=== PATIENT | female | born 1955 | race Caucasian/White ===

== ENCOUNTER 2016-10-23 20:24 | Inpatient (IN) | payer OTHER ==
[~2016-10-23] VITALS: Ht 172.7 cm; Wt 142.1 kg
[~2016-10-23 20:24] MED LIST: ARIP15TA3 PO; ETOMIDATE 2 MG/ML 10 ML VIAL IV ONE; FLUO20CA30 PO; GABA-531 PO; GLIP5TAB11 PO; HYDR12.530 PO; IBUP-1547 PO; LAMO200T PO; LISI30TA4 PO; METF10002 PO; OMEP20CA10 PO; PIOG30TA2 PO; SIMV-260 PO; TAMS0.4C32 PO; TRAZ-147 PO
[2016-10-23] MEDS ORDERED: GABA-531 PO (20:41)
[2016-10-23] MEDS ORDERED: FURO40 PO (20:41)
[2016-10-23] MEDS ORDERED: AMIO200T44 PO (20:41)
[2016-10-23] MEDS ORDERED: ATOR40TA28 PO (20:41)
[2016-10-23] MEDS ORDERED: INSLAN SQ (20:41)
[2016-10-23] MEDS ORDERED: APIX5TAB PO (20:41)
[2016-10-23] MEDS ORDERED: GLIP5 PO (20:41)
[2016-10-23] MEDS ORDERED: ARIP15TA3 PO (20:41)
[2016-10-23] MEDS ORDERED: METF500T4 PO (20:41)
[2016-10-23] MEDS ORDERED: LAMO100 PO (20:41)
[2016-10-23] MEDS ORDERED: OMEG300C3 PO (20:41)
[2016-10-23] MEDS ORDERED: SODIUM CHLORIDE 0.9% 1,000 ML IV ONE (21:00)
[2016-10-23 21:30] LABS: ABG A-A DIFF O2 399.9 mmHg (10-20.0); ABG BASE EXCESS 7.3 mmol/L (-2.0-3.0); ABG HCO3 28.9 mmol/L (22.0-26.0); ABG OXYHEMOGLOBIN 86.5 % (94.0-100.0); ABG PH 7.217 (7.35-7.450); TEMPERATURE, FAHRENHEIT, BG 98.3 FAHREN (96.0-98.6)
[2016-10-23 21:31] LABS: ABG PCO2 88 mmHg (35-45)
[2016-10-23 21:32] LABS: ALLEN TEST, BLOOD GAS Positive
[2016-10-23] MEDS ORDERED: RAPID SEQUENCE KIT [RSI] 1 EACH KIT ONE ×2 (21:37)
[2016-10-23] MEDS ORDERED: SUCCINYLCHOLINE CHLORIDE 20 MG/ML 10 ML VIAL ONE (21:38)
[2016-10-23 21:40] LABS: BASOPHILS # (AUTO) 0.06 K/uL (0.00-0.20); EOSINOPHILS # (AUTO) 0.07 K/uL (0.00-0.70); EOSINOPHILS % (AUTO) 1.06 % (1.0-6.0); HEMATOCRIT 33.6 % (41-53); HEMOGLOBIN 10.4 g/dL (13.5-17.5); LYMPHOCYTES # (AUTO) 1.2 K/uL (1.0-4.8); LYMPHOCYTES % (AUTO) 18.3 % (22.0-44.0); MEAN CORPUSCULAR HEMOGLOBIN 27.5 pg (26.0-34.0); MEAN CORPUSCULAR HGB CONC 31.1 G/dL (31.0-37.0); MEAN CORPUSCULAR VOLUME 88 fL (80-100); MONOCYTES # (AUTO) 0.3 K/uL (0.1-1.0); MONOCYTES % (AUTO) 5.1 % (2.0-9.0); NEUTROPHILS # (AUTO) 4.7 K/uL (1.8-7.7); NEUTROPHILS % (AUTO) 74.6 % (40.0-70.0); PLATELET COUNT (AUTO) 143 K/uL (150-450); RED CELL DISTRIBUTION WIDTH 18.5 % (11.5-14.5); WHITE BLOOD COUNT (AUTO) 6.3 K/uL (4.5-11.0)
[2016-10-23 21:49] LABS: ANION GAP 7 mmol/L (8-16); CALCIUM, TOTAL 8.3 mg/dL (8.8-10.5); CARBON DIOXIDE 33 mmol/L (22-29); CHLORIDE 104 mmol/L (98-107); CREATININE 4.61 mg/dL (0.60-1.30); GLOMERULAR FILTR. RATE CALC 13 mL/min (>60); POTASSIUM 4.5 mmol/L (3.5-5.1); SODIUM SERUM 144 mmol/L (136-145); UREA NITROGEN, BLOOD 33 mg/dL (7-18)
[2016-10-23] MEDS ORDERED: LORazepam 2 MG/ML VIAL IVP ONE (22:00)
[2016-10-23] MEDS ORDERED: SUCCINYLCHOLINE CHLORIDE 20 MG/ML 10 ML VIAL IVP ONE (22:00)
[2016-10-23] MEDS ORDERED: ROCURONIUM BROMIDE 10 MG/ML 5 ML VIAL IVP ONE (22:00)
[2016-10-23] MEDS ORDERED: ETOMIDATE 2 MG/ML 10 ML VIAL IVP ONE (22:00)
[2016-10-23 22:01] LABS: ALANINE AMINOTRANSFERASE 14 U/L (12-78); ASPARTATE AMINOTRANSFERASE 13 U/L (15-37); BILIRUBIN,TOTAL 0.4 mg/dL (0.1-1.0); CREATINE KINASE MB 1.7 ng/mL (0-5); CREATINE KINASE, TOTAL 102 U/L (39-308); TOTAL PROTEIN, SERUM 6.5 g/dL (6.4-8.2)
[2016-10-23 22:06] LABS: B-TYPE NATRIURETIC PEPTIDE 204 pg/mL (0-100)
[2016-10-23 22:09] LABS: APPEARANCE,URINE CLOUDY (CLEAR); GLUCOSE, URINE (UA) NEGATIVE (NEGATIVE); KETONES,URINE TRACE mg/dL (NEGATIVE); LEUKOCYTE ESTERASE ,URINE SMALL (NEGATIVE); OCCULT BLOOD,URINE NEGATIVE (NEGATIVE); PROTEIN,URINE POS 1+ (NEGATIVE)
[2016-10-23 22:12] LABS: ADD UA MICROSCOPIC YES
[2016-10-23 22:13] LABS: AMORPHOUS SEDIMENT,UR Few /LPF (None Seen); RBC,URINE 0-2 /HPF (0-2); SQUAMOUS EPITHELIAL CELL,UR Moderate /LPF (None Seen)
[2016-10-23] MEDS ORDERED: FUROSEMIDE 40 MG/4 ML VIAL IVP ONE (22:15)
[2016-10-23 22:19] LABS: INR 0.9 (0.9-1.1); PROTHROMBIN TIME 9.8 SEC (9.4-11.6)
[2016-10-23] MEDS ORDERED: CefTRIAXone 1 GM/DEXTROSE 50 ML IV ONE (22:30)
[2016-10-23 23:20] LABS: REFLEX LACTIC ACID? YES YES
[2016-10-23 23:31] LABS: ABG A-A DIFF O2 423.9 mmHg (10-20.0); ABG BASE EXCESS 5.1 mmol/L (-2.0-3.0); ABG HCO3 28.6 mmol/L (22.0-26.0); ABG OXYHEMOGLOBIN 94.5 % (94.0-100.0); ABG PCO2 44 mmHg (35-45); ABG PH 7.444 (7.35-7.450); TEMPERATURE, FAHRENHEIT, BG 97.7 FAHREN (96.0-98.6)
[2016-10-23 23:32] LABS: ALLEN TEST, BLOOD GAS Positive
[2016-10-24] VITALS (8 sets, daily range): BP systolic 89–128; BP diastolic 47–86
[2016-10-24] MEDS: PROPOFOL 1000 MG/ISO-OSM 100 ML IV PRN ×5 (05:11→23:05)
[2016-10-24] MEDS ORDERED: DEXTROSE 50%-WATER 25 GM/50 ML SYRINGE IVP ONE ×3 (05:30→17:15)
[2016-10-24 05:50] LABS: CALCIUM, TOTAL 8.6 mg/dL (8.8-10.5); CREATININE 4.33 mg/dL (0.60-1.30); MAGNESIUM 1.8 mg/dL (1.80-2.40); PHOSPHORUS 3.1 mg/dL (2.5-4.9); POTASSIUM 4.1 mmol/L (3.5-5.1)
[2016-10-24 05:54] LABS: BASOPHILS # (AUTO) 0.03 K/uL (0.00-0.20); BASOPHILS % (AUTO) 0.6 % (0.0-2.0); EOSINOPHILS # (AUTO) 0.06 K/uL (0.00-0.70); EOSINOPHILS % (AUTO) 1.18 % (1.0-6.0); HEMATOCRIT 34.8 % (41-53); HEMOGLOBIN 11.1 g/dL (13.5-17.5); LYMPHOCYTES # (AUTO) 1.6 K/uL (1.0-4.8); LYMPHOCYTES % (AUTO) 28.6 % (22.0-44.0); MEAN CORPUSCULAR HEMOGLOBIN 27.7 pg (26.0-34.0); MEAN CORPUSCULAR HGB CONC 31.9 G/dL (31.0-37.0); MEAN CORPUSCULAR VOLUME 87 fL (80-100); MONOCYTES # (AUTO) 0.3 K/uL (0.1-1.0); MONOCYTES % (AUTO) 4.9 % (2.0-9.0); NEUTROPHILS # (AUTO) 3.5 K/uL (1.8-7.7); NEUTROPHILS % (AUTO) 64.8 % (40.0-70.0); RED BLOOD CELL COUNT(AUTO) 4.01 MIL/uL (4.50-5.90); RED CELL DISTRIBUTION WIDTH 18.7 % (11.5-14.5); WHITE BLOOD COUNT (AUTO) 5.5 K/uL (4.5-11.0)
[2016-10-24 07:58] LABS: PLATELET COUNT (AUTO) 134 K/uL (150-450); RBC MORPHOLOGY COMMENT ABNORMAL RBC MORPH
[2016-10-24] MEDS ORDERED: BISACODYL 10 MG RECTAL RECTAL SUPPOSITORY PR PRN (08:00)
[2016-10-24] MEDS: DEXTROSE 5%-0.45% SODIUM CHL 1,000 ML IV SCH ×2 (08:00→20:01)
[2016-10-24 08:22] LABS: GLUCOSE,POINT OF CARE 151 MG/DL (70-110)
[2016-10-24 08:22] LABS: GLUCOSE COMMENT 1 Received Meds; GLUCOSE,POINT OF CARE 62 MG/DL (70-110)
[2016-10-24] MEDS ORDERED: APIXABAN 2.5 MG TABLET PO SCH (09:00)
[2016-10-24] MEDS: DOCUSATE SODIUM 100 MG CAPSULE PO SCH ×2 (09:00→20:18)
[2016-10-24] MEDS ORDERED: PANTOPRAZOLE SODIUM 40 MG/VIAL IVP SCH (09:00)
[2016-10-24] MEDS ORDERED: HEPARIN SODIUM 25000 UNITS/D5W 250 ML IV PRN (09:31)
[2016-10-24] MEDS ORDERED: HEPARIN SODIUM,PORCINE 5,000 UNITS/ML VIAL IVP PRN ×3 (09:45)
[2016-10-24 10:02] LABS: PROTHROMBIN TIME 10.6 SEC (9.4-11.6)
[2016-10-24] MEDS: HEPARIN SODIUM 25000 UNITS/D5W 250 ML IV PRN ×2 (11:04→17:51)
[2016-10-24] MEDS ORDERED: DEXTROSE 50%-WATER 25 GM/50 ML SYRINGE IVP PRN ×2 (18:45→22:00)
[2016-10-24 20:57] LABS: GLUCOSE,POINT OF CARE 62 MG/DL (70-110)
[2016-10-24 20:57] LABS: GLUCOSE,POINT OF CARE 114 MG/DL (70-110)
[2016-10-24 20:57] LABS: GLUCOSE,POINT OF CARE 111 MG/DL (70-110)
[2016-10-24] MEDS: INSULIN REGULAR, HUMAN 100 UNITS/ML SQ PRN (23:22)
[2016-10-25] VITALS (8 sets, daily range): BP systolic 91–140; BP diastolic 65–77
[2016-10-25] MEDS: PROPOFOL 1000 MG/ISO-OSM 100 ML IV PRN ×6 (01:57→23:07)
[2016-10-25] MEDS: INSULIN REGULAR, HUMAN 100 UNITS/ML SQ PRN ×2 (04:37→12:34)
[2016-10-25 04:38] LABS: GLUCOSE,POINT OF CARE 72 MG/DL (70-110)
[2016-10-25 04:42] LABS: GLUCOSE,POINT OF CARE 125 MG/DL (70-110)
[2016-10-25 04:42] LABS: GLUCOSE,POINT OF CARE 105 MG/DL (70-110)
[2016-10-25] MEDS: HEPARIN SODIUM 25000 UNITS/D5W 250 ML IV PRN ×2 (05:52→23:57)
[2016-10-25 05:57] LABS: BASOPHILS % (AUTO) 0.4 % (0.0-2.0); EOSINOPHILS % (AUTO) 2.1 % (1.0-6.0); HEMATOCRIT 34.1 % (41-53); HEMOGLOBIN 10.8 g/dL (13.5-17.5); LYMPHOCYTES # (AUTO) 1.6 K/uL (1.0-4.8); MEAN CORPUSCULAR HEMOGLOBIN 27.3 pg (26.0-34.0); MEAN CORPUSCULAR HGB CONC 31.8 G/dL (31.0-37.0); MEAN CORPUSCULAR VOLUME 86 fL (80-100); MONOCYTES # (AUTO) 0.3 K/uL (0.1-1.0); MONOCYTES % (AUTO) 5.3 % (2.0-9.0); NEUTROPHILS % (AUTO) 60.2 % (40.0-70.0); PLATELET COUNT (AUTO) 136 K/uL (150-450); RED BLOOD CELL COUNT(AUTO) 3.97 MIL/uL (4.50-5.90); RED CELL DISTRIBUTION WIDTH 18.8 % (11.5-14.5)
[2016-10-25 06:16] LABS: ALBUMIN 2.6 g/dL (3.4-5.0); BILIRUBIN,TOTAL 0.4 mg/dL (0.1-1.0); CALCIUM, TOTAL 8.5 mg/dL (8.8-10.5); CREATININE 2.93 mg/dL (0.60-1.30); MAGNESIUM 1.7 mg/dL (1.80-2.40); PHOSPHORUS 2.1 mg/dL (2.5-4.9); THYROID STIMULATING HORMONE 7.68 uIU/mL (0.36-3.74)
[2016-10-25] MEDS: HEPARIN SODIUM,PORCINE 5,000 UNITS/ML VIAL IVP PRN (07:10)
[2016-10-25 07:14] LABS: POTASSIUM 2.7 mmol/L (3.5-5.1)
[2016-10-25] MEDS ORDERED: POTASSIUM CHLORIDE 10% 40 MEQ/30 ML LIQUID UDCUP NG ONE (07:45)
[2016-10-25] MEDS ORDERED: SODIUM PHOS,M-BASIC-D-BASIC 20 MMOL in DEXTROSE 5%-WATER 150 ML IV ONE (08:00)
[2016-10-25] MEDS ORDERED: MAGNESIUM SULFATE 3 GM in DEXTROSE 5%-WATER 100 ML IV ONE (08:00)
[2016-10-25] MEDS: PANTOPRAZOLE SODIUM 40 MG DR TABLET PO SCH ×2 (08:57→09:01)
[2016-10-25] MEDS: DOCUSATE SODIUM 100 MG CAPSULE PO SCH ×2 (08:59→19:50)
[2016-10-25] MEDS: MORPHINE SULFATE 2 MG/ML SYRINGE IVP PRN (09:00)
[2016-10-25 09:44] LABS: RBC MORPHOLOGY COMMENT ABNORMAL RBC MORPH
[2016-10-25 09:57] LABS: ABG A-A DIFF O2 248.1 mmHg (10-20.0); ABG BASE EXCESS 3.3 mmol/L (-2.0-3.0); ABG HCO3 27.4 mmol/L (22.0-26.0); ABG OXYHEMOGLOBIN 93.5 % (94.0-100.0); ABG PCO2 35 mmHg (35-45); ABG PH 7.495 (7.35-7.450); TEMPERATURE, FAHRENHEIT, BG 97.8 FAHREN (96.0-98.6)
[2016-10-25 09:58] LABS: ALLEN TEST, BLOOD GAS Positive
[2016-10-25 12:23] LABS: GLUCOSE COMMENT 1 Received Meds; GLUCOSE,POINT OF CARE 141 MG/DL (70-110)
[2016-10-25] MEDS: MetroNIDAZOLE 500 MG TABLET PO SCH ×2 (15:46→23:57)
[2016-10-25 22:57] LABS: GLUCOSE,POINT OF CARE 105 MG/DL (70-110)
[2016-10-25] MEDS: DEXTROSE 5%-0.45% SODIUM CHL 1,000 ML IV SCH (23:21)
[2016-10-26] VITALS: BP 103/63
[2016-10-26] MEDS: PROPOFOL 1000 MG/ISO-OSM 100 ML IV PRN ×7 (02:18→23:50)
[2016-10-26 05:00] LABS: BASOPHILS # (AUTO) 0.03 K/uL (0.00-0.20); BASOPHILS % (AUTO) 0.7 % (0.0-2.0); EOSINOPHILS # (AUTO) 0.16 K/uL (0.00-0.70); EOSINOPHILS % (AUTO) 3.83 % (1.0-6.0); HEMATOCRIT 34.5 % (41-53); HEMOGLOBIN 11.3 g/dL (13.5-17.5); LYMPHOCYTES # (AUTO) 1.2 K/uL (1.0-4.8); LYMPHOCYTES % (AUTO) 28.3 % (22.0-44.0); MEAN CORPUSCULAR HEMOGLOBIN 27.9 pg (26.0-34.0); MEAN CORPUSCULAR HGB CONC 32.7 G/dL (31.0-37.0); MEAN CORPUSCULAR VOLUME 85 fL (80-100); MONOCYTES # (AUTO) 0.3 K/uL (0.1-1.0); MONOCYTES % (AUTO) 7.2 % (2.0-9.0); NEUTROPHILS # (AUTO) 2.4 K/uL (1.8-7.7); PLATELET COUNT (AUTO) 136 K/uL (150-450); RED BLOOD CELL COUNT(AUTO) 4.05 MIL/uL (4.50-5.90); RED CELL DISTRIBUTION WIDTH 19.5 % (11.5-14.5); WHITE BLOOD COUNT (AUTO) 4.1 K/uL (4.5-11.0)
[2016-10-26 05:20] LABS: ALBUMIN 2.7 g/dL (3.4-5.0); BILIRUBIN,TOTAL 0.3 mg/dL (0.1-1.0); CALCIUM, TOTAL 8.5 mg/dL (8.8-10.5); CREATININE 1.84 mg/dL (0.60-1.30); MAGNESIUM 2.5 mg/dL (1.80-2.40); POTASSIUM 3.2 mmol/L (3.5-5.1); TOTAL PROTEIN, SERUM 6.4 g/dL (6.4-8.2)
[2016-10-26] MEDS: INSULIN REGULAR, HUMAN 100 UNITS/ML SQ PRN (06:06)
[2016-10-26] MEDS: HEPARIN SODIUM,PORCINE 5,000 UNITS/ML VIAL IVP PRN (06:56)
[2016-10-26 08:00] VITALS: BP 126/86
[2016-10-26] MEDS: DOCUSATE SODIUM 100 MG CAPSULE PO SCH ×2 (08:27→21:00)
[2016-10-26 08:33] LABS: GLUCOSE,POINT OF CARE 127 MG/DL (70-110)
[2016-10-26 08:36] LABS: GLUCOSE,POINT OF CARE 146 MG/DL (70-110)
[2016-10-26] MEDS: APIXABAN 5 MG TABLET PO SCH ×2 (08:36→21:15)
[2016-10-26] MEDS: MetroNIDAZOLE 500 MG TABLET PO SCH ×3 (08:36→23:49)
[2016-10-26 09:39] LABS: ABG A-A DIFF O2 165.2 mmHg (10-20.0); ABG BASE EXCESS 6.6 mmol/L (-2.0-3.0); ABG HCO3 29.6 mmol/L (22.0-26.0); ABG OXYHEMOGLOBIN 92.2 % (94.0-100.0); ABG PCO2 45 mmHg (35-45); ABG PH 7.448 (7.35-7.450); TEMPERATURE, FAHRENHEIT, BG 98.6 FAHREN (96.0-98.6)
[2016-10-26 09:40] LABS: ALLEN TEST, BLOOD GAS Positive
[2016-10-26] MEDS ORDERED: LORazepam 2 MG/ML VIAL IVP ONE (10:15)
[2016-10-26] MEDS ORDERED: VANCOMYCIN HCL 1 GM/D5% WATER 200 ML IV ONE (11:00)
[2016-10-26] MEDS ORDERED: POTASSIUM CHLORIDE 10% 40 MEQ/30 ML LIQUID UDCUP PO ONE (11:30)
[2016-10-26] MEDS: PANTOPRAZOLE SODIUM 40 MG/VIAL IVP SCH (11:45)
[2016-10-26 12:00] VITALS: BP 116/75
[2016-10-26 16:00] VITALS: BP 122/68
[2016-10-26 16:07] LABS: GLUCOSE,POINT OF CARE 125 MG/DL (70-110)
[2016-10-26] MEDS: DEXTROSE 5%-0.45% SODIUM CHL 1,000 ML IV SCH (19:53)
[2016-10-26 20:00] VITALS: BP 124/79
[2016-10-26 22:00] VITALS: BP 105/67
[2016-10-27] VITALS (7 sets, daily range): BP systolic 94–126; BP diastolic 56–78
[2016-10-27] MEDS: PROPOFOL 1000 MG/ISO-OSM 100 ML IV PRN ×7 (02:48→21:55)
[2016-10-27 05:43] LABS: BASOPHILS # (AUTO) 0.02 K/uL (0.00-0.20); BASOPHILS % (AUTO) 0.6 % (0.0-2.0); EOSINOPHILS # (AUTO) 0.13 K/uL (0.00-0.70); EOSINOPHILS % (AUTO) 3.15 % (1.0-6.0); HEMATOCRIT 34.5 % (41-53); LYMPHOCYTES # (AUTO) 1.1 K/uL (1.0-4.8); LYMPHOCYTES % (AUTO) 24.9 % (22.0-44.0); MEAN CORPUSCULAR HEMOGLOBIN 27.4 pg (26.0-34.0); MEAN CORPUSCULAR VOLUME 86 fL (80-100); MONOCYTES # (AUTO) 0.3 K/uL (0.1-1.0); MONOCYTES % (AUTO) 7.8 % (2.0-9.0); NEUTROPHILS # (AUTO) 2.7 K/uL (1.8-7.7); NEUTROPHILS % (AUTO) 63.6 % (40.0-70.0); PLATELET COUNT (AUTO) 139 K/uL (150-450); RED BLOOD CELL COUNT(AUTO) 4.02 MIL/uL (4.50-5.90); RED CELL DISTRIBUTION WIDTH 19.9 % (11.5-14.5); WHITE BLOOD COUNT (AUTO) 4.3 K/uL (4.5-11.0)
[2016-10-27 05:57] LABS: CALCIUM, TOTAL 8.6 mg/dL (8.8-10.5); CREATININE 1.35 mg/dL (0.60-1.30); MAGNESIUM 2.1 mg/dL (1.80-2.40); PHOSPHORUS 3.5 mg/dL (2.5-4.9); POTASSIUM 3.7 mmol/L (3.5-5.1)
[2016-10-27] MEDS ORDERED: SODIUM CHLORIDE 0.9% 250 ML IV ONE (07:58)
[2016-10-27] MEDS: APIXABAN 5 MG TABLET PO SCH ×2 (08:08→20:47)
[2016-10-27] MEDS: PANTOPRAZOLE SODIUM 40 MG/VIAL IVP SCH (08:08)
[2016-10-27] MEDS: MetroNIDAZOLE 500 MG TABLET PO SCH ×3 (08:08→23:39)
[2016-10-27] MEDS: DOCUSATE SODIUM 100 MG CAPSULE PO SCH ×2 (08:09→20:43)
[2016-10-27] MEDS: DEXTROSE 5%-0.45% SODIUM CHL 1,000 ML IV SCH (08:09)
[2016-10-27 09:02] LABS: GLUCOSE,POINT OF CARE 114 MG/DL (70-110)
[2016-10-27 09:02] LABS: GLUCOSE,POINT OF CARE 110 MG/DL (70-110)
[2016-10-27 09:02] LABS: GLUCOSE,POINT OF CARE 140 MG/DL (70-110)
[2016-10-27] MEDS ORDERED: VANCOMYCIN HCL 1.5 GM in DEXTROSE 5%-WATER 250 ML IV ONE (10:00)
[2016-10-27 10:54] LABS: RBC MORPHOLOGY COMMENT ABNORMAL RBC MORPH
[2016-10-27] MEDS: INSULIN REGULAR, HUMAN 100 UNITS/ML SQ PRN ×2 (18:11→23:39)
[2016-10-27] MEDS: VANCOMYCIN HCL 1.5 GM in DEXTROSE 5%-WATER 250 ML IV SCH (20:47)
[2016-10-27 23:46] LABS: GLUCOSE,POINT OF CARE 120 MG/DL (70-110)
[2016-10-28] VITALS (10 sets, daily range): BP systolic 102–130; BP diastolic 65–89
[2016-10-28] MEDS: PROPOFOL 1000 MG/ISO-OSM 100 ML IV PRN ×6 (00:23→23:51)
[2016-10-28] MEDS: DEXTROSE 5%-0.45% SODIUM CHL 1,000 ML IV SCH (01:50)
[2016-10-28] MEDS: INSULIN REGULAR, HUMAN 100 UNITS/ML SQ PRN ×2 (05:55→12:28)
[2016-10-28 06:04] LABS: BASOPHILS # (AUTO) 0.02 K/uL (0.00-0.20); BASOPHILS % (AUTO) 0.5 % (0.0-2.0); EOSINOPHILS # (AUTO) 0.17 K/uL (0.00-0.70); EOSINOPHILS % (AUTO) 3.39 % (1.0-6.0); HEMATOCRIT 33.6 % (36-46); HEMOGLOBIN 10.7 g/dL (12.0-16.0); LYMPHOCYTES # (AUTO) 1.2 K/uL (1.0-4.8); LYMPHOCYTES % (AUTO) 24.1 % (22.0-44.0); MEAN CORPUSCULAR HEMOGLOBIN 27.8 pg (26.0-34.0); MEAN CORPUSCULAR HGB CONC 31.9 G/dL (31.0-37.0); MEAN CORPUSCULAR VOLUME 87 fL (80-100); MONOCYTES # (AUTO) 0.4 K/uL (0.1-1.0); MONOCYTES % (AUTO) 7.9 % (2.0-9.0); NEUTROPHILS # (AUTO) 3.3 K/uL (1.8-7.7); NEUTROPHILS % (AUTO) 64.1 % (40.0-70.0); PLATELET COUNT (AUTO) 138 K/uL (150-450); RED BLOOD CELL COUNT(AUTO) 3.85 MIL/uL (4.00-5.20); WHITE BLOOD COUNT (AUTO) 5.1 K/uL (4.5-11.0)
[2016-10-28 06:16] LABS: ALBUMIN 2.5 g/dL (3.4-5.0); BILIRUBIN,TOTAL 0.3 mg/dL (0.1-1.0); CALCIUM, TOTAL 8.6 mg/dL (8.8-10.5); CREATININE 1.17 mg/dL (0.60-1.30); MAGNESIUM 1.7 mg/dL (1.80-2.40); POTASSIUM 3.6 mmol/L (3.5-5.1); TOTAL PROTEIN, SERUM 6.1 g/dL (6.4-8.2)
[2016-10-28 07:02] LABS: RBC MORPHOLOGY COMMENT ABNORMAL RBC MORPH
[2016-10-28] MEDS: MORPHINE SULFATE 2 MG/ML SYRINGE IVP PRN ×2 (08:35→11:35)
[2016-10-28] MEDS: VANCOMYCIN HCL 1.5 GM in DEXTROSE 5%-WATER 250 ML IV SCH ×2 (08:41→20:59)
[2016-10-28] MEDS: MetroNIDAZOLE 500 MG TABLET PO SCH ×3 (08:42→23:57)
[2016-10-28] MEDS: PANTOPRAZOLE SODIUM 40 MG/VIAL IVP SCH (08:45)
[2016-10-28] MEDS: APIXABAN 5 MG TABLET PO SCH ×2 (08:45→20:59)
[2016-10-28] MEDS: DOCUSATE SODIUM 100 MG CAPSULE PO SCH ×2 (08:45→21:00)
[2016-10-28 11:52] LABS: GLUCOSE,POINT OF CARE 125 MG/DL (70-110)
[2016-10-28] MEDS ORDERED: MAGNESIUM SULFATE 2 GM in DEXTROSE 5%-WATER 50 ML IV ONE (12:00)
[2016-10-28 12:07] LABS: GLUCOSE COMMENT 1 Received Meds; GLUCOSE,POINT OF CARE 142 MG/DL (70-110)
[2016-10-28 12:07] LABS: GLUCOSE,POINT OF CARE 109 MG/DL (70-110)
[2016-10-28 12:07] LABS: GLUCOSE COMMENT 1 Received Meds; GLUCOSE,POINT OF CARE 157 MG/DL (70-110)
[2016-10-28] MEDS ORDERED: SODIUM CHLORIDE 0.9% 250 ML IV ONE (21:35)
[2016-10-29] VITALS (10 sets, daily range): BP systolic 91–120; BP diastolic 47–80
[2016-10-29] MEDS: PROPOFOL 1000 MG/ISO-OSM 100 ML IV PRN ×5 (03:30→22:07)
[2016-10-29 06:14] LABS: BASOPHILS % (AUTO) 0.4 % (0.0-2.0); EOSINOPHILS % (AUTO) 3.5 % (1.0-6.0); HEMATOCRIT 33.7 % (36-46); HEMOGLOBIN 10.4 g/dL (12.0-16.0); LYMPHOCYTES # (AUTO) 1.2 K/uL (1.0-4.8); MEAN CORPUSCULAR HEMOGLOBIN 26.7 pg (26.0-34.0); MEAN CORPUSCULAR VOLUME 86 fL (80-100); MONOCYTES # (AUTO) 0.5 K/uL (0.1-1.0); MONOCYTES % (AUTO) 8.3 % (2.0-9.0); NEUTROPHILS # (AUTO) 3.7 K/uL (1.8-7.7); NEUTROPHILS % (AUTO) 65.8 % (40.0-70.0); PLATELET COUNT (AUTO) 150 K/uL (150-450); RED BLOOD CELL COUNT(AUTO) 3.91 MIL/uL (4.00-5.20); RED CELL DISTRIBUTION WIDTH 18.9 % (11.5-14.5); WHITE BLOOD COUNT (AUTO) 5.6 K/uL (4.5-11.0)
[2016-10-29 06:38] LABS: ALBUMIN 2.5 g/dL (3.4-5.0); BILIRUBIN,TOTAL 0.3 mg/dL (0.1-1.0); CALCIUM, TOTAL 8.7 mg/dL (8.8-10.5); CREATININE 1.14 mg/dL (0.60-1.30); MAGNESIUM 2.2 mg/dL (1.80-2.40); TOTAL PROTEIN, SERUM 6.1 g/dL (6.4-8.2)
[2016-10-29] MEDS: MetroNIDAZOLE 500 MG TABLET PO SCH ×3 (08:34→16:38)
[2016-10-29] MEDS: DOCUSATE SODIUM 100 MG CAPSULE PO SCH ×2 (08:35→21:00)
[2016-10-29] MEDS: PANTOPRAZOLE SODIUM 40 MG/VIAL IVP SCH (08:35)
[2016-10-29] MEDS: APIXABAN 5 MG TABLET PO SCH ×2 (08:35→21:27)
[2016-10-29 09:04] LABS: RBC MORPHOLOGY COMMENT ABNORMAL RBC MORPH
[2016-10-29 09:06] LABS: GLUCOSE,POINT OF CARE 102 MG/DL (70-110)
[2016-10-29 09:06] LABS: GLUCOSE,POINT OF CARE 121 MG/DL (70-110)
[2016-10-29 09:06] LABS: GLUCOSE,POINT OF CARE 121 MG/DL (70-110)
[2016-10-29 11:57] LABS: GLUCOSE,POINT OF CARE 119 MG/DL (70-110)
[2016-10-29 17:42] LABS: ABG A-A DIFF O2 152.6 mmHg (10-20.0); ABG BASE EXCESS 1.4 mmol/L (-2.0-3.0); ABG HCO3 25.7 mmol/L (22.0-26.0); ABG OXYHEMOGLOBIN 95.8 % (94.0-100.0); ABG PCO2 41 mmHg (35-45); ABG PH 7.423 (7.35-7.450); ALLEN TEST, BLOOD GAS POS; TEMPERATURE, FAHRENHEIT, BG 99.5 FAHREN (96.0-98.6)
[2016-10-29 18:02] LABS: GLUCOSE,POINT OF CARE 110 MG/DL (70-110)
[2016-10-29] MEDS: VANCOMYCIN HCL 1 GM/D5% WATER 200 ML IV SCH (21:27)
[2016-10-30] VITALS (10 sets, daily range): BP systolic 101–119; BP diastolic 58–81
[2016-10-30] MEDS: PROPOFOL 1000 MG/ISO-OSM 100 ML IV PRN ×8 (00:52→23:22)
[2016-10-30] MEDS: MetroNIDAZOLE 500 MG TABLET PO SCH ×4 (00:53→23:22)
[2016-10-30 05:28] LABS: CREATININE 1.19 mg/dL (0.60-1.30); POTASSIUM 4.1 mmol/L (3.5-5.1)
[2016-10-30 05:29] LABS: CALCIUM, TOTAL 8.6 mg/dL (8.8-10.5); MAGNESIUM 1.9 mg/dL (1.80-2.40); PHOSPHORUS 3.7 mg/dL (2.5-4.9)
[2016-10-30 05:50] LABS: BASOPHILS % (AUTO) 0.5 % (0.0-2.0); EOSINOPHILS % (AUTO) 3.3 % (1.0-6.0); HEMATOCRIT 33.1 % (36-46); HEMOGLOBIN 10.4 g/dL (12.0-16.0); LYMPHOCYTES # (AUTO) 1.5 K/uL (1.0-4.8); LYMPHOCYTES % (AUTO) 24.9 % (22.0-44.0); MEAN CORPUSCULAR HEMOGLOBIN 26.7 pg (26.0-34.0); MEAN CORPUSCULAR HGB CONC 31.3 G/dL (31.0-37.0); MEAN CORPUSCULAR VOLUME 85 fL (80-100); MONOCYTES # (AUTO) 0.7 K/uL (0.1-1.0); MONOCYTES % (AUTO) 11.1 % (2.0-9.0); NEUTROPHILS # (AUTO) 3.6 K/uL (1.8-7.7); NEUTROPHILS % (AUTO) 60.2 % (40.0-70.0); PLATELET COUNT (AUTO) 153 K/uL (150-450); RED BLOOD CELL COUNT(AUTO) 3.87 MIL/uL (4.00-5.20); RED CELL DISTRIBUTION WIDTH 18.6 % (11.5-14.5)
[2016-10-30] MEDS: VANCOMYCIN HCL 1 GM/D5% WATER 200 ML IV SCH (08:02)
[2016-10-30] MEDS: APIXABAN 5 MG TABLET PO SCH ×2 (08:03→20:17)
[2016-10-30] MEDS: PANTOPRAZOLE SODIUM 40 MG/VIAL IVP SCH (08:04)
[2016-10-30] MEDS: DOCUSATE SODIUM 100 MG CAPSULE PO SCH ×2 (08:04→20:21)
[2016-10-30 10:05] LABS: RBC MORPHOLOGY COMMENT ABNORMAL RBC MORPH
[2016-10-30 11:22] LABS: GLUCOSE,POINT OF CARE 103 MG/DL (70-110)
[2016-10-30 11:22] LABS: GLUCOSE,POINT OF CARE 120 MG/DL (70-110)
[2016-10-30] MEDS: HALOPERIDOL LACTATE 5 MG/ML VIAL IVP PRN ×2 (11:26→20:20)
[2016-10-30] MEDS: LACTOBACILLUS ACIDOPHILUS/BULGARICUS GRANULES PACKET NG SCH ×2 (15:44→20:17)
[2016-10-30] MEDS ORDERED: SODIUM CHLORIDE 0.9% 250 ML IV ONE (15:59)
[2016-10-31] VITALS (7 sets, daily range): BP systolic 97–130; BP diastolic 60–86
[2016-10-31 00:12] LABS: GLUCOSE,POINT OF CARE 120 MG/DL (70-110)
[2016-10-31 00:37] LABS: GLUCOSE,POINT OF CARE 106 MG/DL (70-110)
[2016-10-31 02:42] LABS: GLUCOSE,POINT OF CARE 94 MG/DL (70-110)
[2016-10-31] MEDS: PROPOFOL 1000 MG/ISO-OSM 100 ML IV PRN ×5 (03:46→21:25)
[2016-10-31] MEDS: HALOPERIDOL LACTATE 5 MG/ML VIAL IVP PRN (05:20)
[2016-10-31 05:50] LABS: CALCIUM, TOTAL 8.8 mg/dL (8.8-10.5); CREATININE 1.09 mg/dL (0.60-1.30); MAGNESIUM 1.8 mg/dL (1.80-2.40); PHOSPHORUS 3.6 mg/dL (2.5-4.9)
[2016-10-31 06:17] LABS: BASOPHILS % (AUTO) 0.8 % (0.0-2.0); EOSINOPHILS % (AUTO) 3.5 % (1.0-6.0); HEMATOCRIT 34.3 % (36-46); HEMOGLOBIN 10.7 g/dL (12.0-16.0); LYMPHOCYTES # (AUTO) 1.4 K/uL (1.0-4.8); LYMPHOCYTES % (AUTO) 25.9 % (22.0-44.0); MEAN CORPUSCULAR HEMOGLOBIN 26.8 pg (26.0-34.0); MEAN CORPUSCULAR HGB CONC 31.1 G/dL (31.0-37.0); MEAN CORPUSCULAR VOLUME 86 fL (80-100); MONOCYTES # (AUTO) 0.5 K/uL (0.1-1.0); MONOCYTES % (AUTO) 9.4 % (2.0-9.0); NEUTROPHILS # (AUTO) 3.3 K/uL (1.8-7.7); NEUTROPHILS % (AUTO) 60.4 % (40.0-70.0); PLATELET COUNT (AUTO) 159 K/uL (150-450); RED BLOOD CELL COUNT(AUTO) 3.98 MIL/uL (4.00-5.20); RED CELL DISTRIBUTION WIDTH 18.3 % (11.5-14.5); WHITE BLOOD COUNT (AUTO) 5.4 K/uL (4.5-11.0)
[2016-10-31 06:44] LABS: RBC MORPHOLOGY COMMENT ABNORMAL RBC MORPH
[2016-10-31 08:16] LABS: ABG A-A DIFF O2 183.7 mmHg (10-20.0); ABG BASE EXCESS 0.6 mmol/L (-2.0-3.0); ABG HCO3 24.4 mmol/L (22.0-26.0); ABG OXYHEMOGLOBIN 80.2 % (94.0-100.0); ABG PCO2 47 mmHg (35-45); ABG PH 7.362 (7.35-7.450); TEMPERATURE, FAHRENHEIT, BG 98.6 FAHREN (96.0-98.6)
[2016-10-31] MEDS: DOCUSATE SODIUM 100 MG CAPSULE PO SCH ×2 (08:47→21:23)
[2016-10-31] MEDS: PANTOPRAZOLE SODIUM 40 MG/VIAL IVP SCH (09:31)
[2016-10-31] MEDS: MULTIVITAMINS WITH MINERALS, THERAPEUTIC 15 ML UDCUP NG SCH (09:31)
[2016-10-31] MEDS: MetroNIDAZOLE 500 MG TABLET PO SCH ×3 (09:31→23:06)
[2016-10-31] MEDS: APIXABAN 5 MG TABLET PO SCH ×2 (09:31→21:23)
[2016-10-31] MEDS: VANCOMYCIN HCL 1 GM/D5% WATER 200 ML IV SCH (09:32)
[2016-10-31] MEDS: LACTOBACILLUS ACIDOPHILUS/BULGARICUS GRANULES PACKET NG SCH ×3 (09:32→21:24)
[2016-10-31 13:57] LABS: GLUCOSE,POINT OF CARE 131 MG/DL (70-110)
[2016-10-31] MEDS: LORazepam 1 MG TABLET PO SCH ×2 (16:00→21:24)
[2016-10-31] MEDS ORDERED: SODIUM CHLORIDE 0.9% 250 ML IV ONE (23:24)
[2016-11-01] VITALS (9 sets, daily range): BP systolic 102–135; BP diastolic 60–89
[2016-11-01] MEDS: PROPOFOL 1000 MG/ISO-OSM 100 ML IV PRN ×7 (01:09→22:16)
[2016-11-01 05:57] LABS: GLUCOSE,POINT OF CARE 114 MG/DL (70-110)
[2016-11-01 06:22] LABS: BASOPHILS % (AUTO) 0.6 % (0.0-2.0); EOSINOPHILS % (AUTO) 3.5 % (1.0-6.0); HEMATOCRIT 34.3 % (36-46); HEMOGLOBIN 10.8 g/dL (12.0-16.0); LYMPHOCYTES # (AUTO) 1.3 K/uL (1.0-4.8); LYMPHOCYTES % (AUTO) 24.8 % (22.0-44.0); MEAN CORPUSCULAR HGB CONC 31.6 G/dL (31.0-37.0); MEAN CORPUSCULAR VOLUME 86 fL (80-100); MONOCYTES # (AUTO) 0.4 K/uL (0.1-1.0); MONOCYTES % (AUTO) 8.4 % (2.0-9.0); NEUTROPHILS # (AUTO) 3.3 K/uL (1.8-7.7); NEUTROPHILS % (AUTO) 62.7 % (40.0-70.0); PLATELET COUNT (AUTO) 158 K/uL (150-450); RED BLOOD CELL COUNT(AUTO) 4.01 MIL/uL (4.00-5.20); RED CELL DISTRIBUTION WIDTH 18.2 % (11.5-14.5); WHITE BLOOD COUNT (AUTO) 5.3 K/uL (4.5-11.0)
[2016-11-01 06:55] LABS: ALBUMIN 2.5 g/dL (3.4-5.0); BILIRUBIN,TOTAL 0.3 mg/dL (0.1-1.0); CALCIUM, TOTAL 8.9 mg/dL (8.8-10.5); CREATININE 0.97 mg/dL (0.60-1.30); MAGNESIUM 1.7 mg/dL (1.80-2.40); POTASSIUM 3.5 mmol/L (3.5-5.1); TOTAL PROTEIN, SERUM 6.3 g/dL (6.4-8.2)
[2016-11-01] MEDS: LACTOBACILLUS ACIDOPHILUS/BULGARICUS GRANULES PACKET NG SCH ×3 (08:46→21:33)
[2016-11-01] MEDS: MULTIVITAMINS WITH MINERALS, THERAPEUTIC 15 ML UDCUP NG SCH (08:46)
[2016-11-01] MEDS: APIXABAN 5 MG TABLET PO SCH ×2 (08:46→21:32)
[2016-11-01] MEDS: PANTOPRAZOLE SODIUM 40 MG/VIAL IVP SCH (08:46)
[2016-11-01] MEDS: LORazepam 1 MG TABLET PO SCH ×3 (08:46→21:32)
[2016-11-01] MEDS: DOCUSATE SODIUM 100 MG CAPSULE PO SCH ×2 (08:47→21:00)
[2016-11-01] MEDS: MetroNIDAZOLE 500 MG TABLET PO SCH ×2 (08:47→16:06)
[2016-11-01] MEDS: VANCOMYCIN HCL 1 GM/D5% WATER 200 ML IV SCH ×2 (08:47→21:32)
[2016-11-01 09:37] LABS: RBC MORPHOLOGY COMMENT ABNORMAL RBC MORPH
[2016-11-01 13:19] LABS: ABG A-A DIFF O2 150.1 mmHg (10-20.0); ABG HCO3 22.6 mmol/L (22.0-26.0); ABG OXYHEMOGLOBIN 94.2 % (94.0-100.0); ABG PCO2 46 mmHg (35-45); ABG PH 7.331 (7.35-7.450); ALLEN TEST, BLOOD GAS Positive; TEMPERATURE, FAHRENHEIT, BG 98.1 FAHREN (96.0-98.6)
[2016-11-01 15:31] LABS: GLUCOSE,POINT OF CARE 129 MG/DL (70-110)
[2016-11-01 19:41] LABS: GLUCOSE,POINT OF CARE 96 MG/DL (70-110)
[2016-11-01 19:41] LABS: GLUCOSE,POINT OF CARE 132 MG/DL (70-110)
[2016-11-01 19:47] LABS: GLUCOSE,POINT OF CARE 112 MG/DL (70-110)
[2016-11-01] MEDS ORDERED: SODIUM CHLORIDE 0.9% 250 ML IV ONE (22:09)
[2016-11-02] VITALS (9 sets, daily range): BP systolic 97–138; BP diastolic 59–93
[2016-11-02] MEDS: MetroNIDAZOLE 500 MG TABLET PO SCH ×3 (00:30→16:36)
[2016-11-02] MEDS: PROPOFOL 1000 MG/ISO-OSM 100 ML IV PRN ×9 (01:18→22:59)
[2016-11-02 05:27] LABS: BASOPHILS # (AUTO) 0.03 K/uL (0.00-0.20); BASOPHILS % (AUTO) 0.4 % (0.0-2.0); EOSINOPHILS # (AUTO) 0.25 K/uL (0.00-0.70); EOSINOPHILS % (AUTO) 3.52 % (1.0-6.0); HEMATOCRIT 33.6 % (36-46); HEMOGLOBIN 10.6 g/dL (12.0-16.0); LYMPHOCYTES # (AUTO) 1.2 K/uL (1.0-4.8); LYMPHOCYTES % (AUTO) 16.8 % (22.0-44.0); MEAN CORPUSCULAR HEMOGLOBIN 27.3 pg (26.0-34.0); MEAN CORPUSCULAR HGB CONC 31.7 G/dL (31.0-37.0); MEAN CORPUSCULAR VOLUME 86 fL (80-100); MONOCYTES # (AUTO) 0.5 K/uL (0.1-1.0); MONOCYTES % (AUTO) 7.4 % (2.0-9.0); PLATELET COUNT (AUTO) 158 K/uL (150-450); RED CELL DISTRIBUTION WIDTH 18.2 % (11.5-14.5)
[2016-11-02 06:00] LABS: ALBUMIN 2.5 g/dL (3.4-5.0); BILIRUBIN,TOTAL 0.3 mg/dL (0.1-1.0); CALCIUM, TOTAL 8.6 mg/dL (8.8-10.5); CREATININE 1.04 mg/dL (0.60-1.30); MAGNESIUM 1.7 mg/dL (1.80-2.40); POTASSIUM 3.8 mmol/L (3.5-5.1); TOTAL PROTEIN, SERUM 6.2 g/dL (6.4-8.2)
[2016-11-02 07:43] LABS: RBC MORPHOLOGY COMMENT ABNORMAL RBC MORPH
[2016-11-02] MEDS: MULTIVITAMINS WITH MINERALS, THERAPEUTIC 15 ML UDCUP NG SCH (08:18)
[2016-11-02] MEDS: PANTOPRAZOLE SODIUM 40 MG/VIAL IVP SCH (08:20)
[2016-11-02] MEDS: DOCUSATE SODIUM 100 MG CAPSULE PO SCH ×2 (08:20→20:20)
[2016-11-02] MEDS: LORazepam 1 MG TABLET PO SCH ×3 (08:20→20:20)
[2016-11-02] MEDS: LACTOBACILLUS ACIDOPHILUS/BULGARICUS GRANULES PACKET NG SCH ×3 (08:20→20:20)
[2016-11-02] MEDS: APIXABAN 5 MG TABLET PO SCH ×2 (08:20→20:20)
[2016-11-02] MEDS: VANCOMYCIN HCL 1 GM/D5% WATER 200 ML IV SCH ×2 (08:40→20:19)
[2016-11-02] MEDS ORDERED: SODIUM CHLORIDE 0.9% 500 ML IV ONE (23:55)
[2016-11-03] VITALS (13 sets, daily range): BP systolic 100–145; BP diastolic 60–80
[2016-11-03] MEDS: MetroNIDAZOLE 500 MG TABLET PO SCH ×3 (00:56→15:26)
[2016-11-03] MEDS: PROPOFOL 1000 MG/ISO-OSM 100 ML IV PRN ×6 (02:01→20:47)
[2016-11-03 05:46] LABS: BASOPHILS # (AUTO) 0.05 K/uL (0.00-0.20); BASOPHILS % (AUTO) 0.8 % (0.0-2.0); EOSINOPHILS # (AUTO) 0.25 K/uL (0.00-0.70); EOSINOPHILS % (AUTO) 4.25 % (1.0-6.0); HEMATOCRIT 34.2 % (36-46); HEMOGLOBIN 10.9 g/dL (12.0-16.0); LYMPHOCYTES # (AUTO) 1.4 K/uL (1.0-4.8); LYMPHOCYTES % (AUTO) 24.5 % (22.0-44.0); MEAN CORPUSCULAR HEMOGLOBIN 27.5 pg (26.0-34.0); MEAN CORPUSCULAR HGB CONC 31.9 G/dL (31.0-37.0); MEAN CORPUSCULAR VOLUME 86 fL (80-100); MONOCYTES # (AUTO) 0.6 K/uL (0.1-1.0); NEUTROPHILS # (AUTO) 3.5 K/uL (1.8-7.7); NEUTROPHILS % (AUTO) 60.5 % (40.0-70.0); PLATELET COUNT (AUTO) 158 K/uL (150-450); RED BLOOD CELL COUNT(AUTO) 3.98 MIL/uL (4.00-5.20); RED CELL DISTRIBUTION WIDTH 18.9 % (11.5-14.5); WHITE BLOOD COUNT (AUTO) 5.8 K/uL (4.5-11.0)
[2016-11-03 06:09] LABS: ALBUMIN 2.4 g/dL (3.4-5.0); BILIRUBIN,TOTAL 0.3 mg/dL (0.1-1.0); CALCIUM, TOTAL 8.6 mg/dL (8.8-10.5); MAGNESIUM 1.7 mg/dL (1.80-2.40); POTASSIUM 3.5 mmol/L (3.5-5.1); TOTAL PROTEIN, SERUM 6.3 g/dL (6.4-8.2)
[2016-11-03] MEDS: VANCOMYCIN HCL 750 MG in DEXTROSE 5%-WATER 150 ML IV SCH ×2 (09:05→20:49)
[2016-11-03] MEDS: MULTIVITAMINS WITH MINERALS, THERAPEUTIC 15 ML UDCUP NG SCH (09:21)
[2016-11-03] MEDS: PANTOPRAZOLE SODIUM 40 MG/VIAL IVP SCH (09:21)
[2016-11-03] MEDS: DOCUSATE SODIUM 100 MG CAPSULE PO SCH ×2 (09:22→20:59)
[2016-11-03 10:05] LABS: RBC MORPHOLOGY COMMENT ABNORMAL RBC MORPH
[2016-11-03] MEDS: LORazepam 1 MG TABLET PO SCH ×3 (10:29→20:59)
[2016-11-03] MEDS: APIXABAN 5 MG TABLET PO SCH ×2 (10:29→21:00)
[2016-11-03] MEDS: LACTOBACILLUS ACIDOPHILUS/BULGARICUS GRANULES PACKET NG SCH ×3 (10:32→20:59)
[2016-11-03 12:03] LABS: GLUCOSE,POINT OF CARE 105 MG/DL (70-110)
[2016-11-03 13:27] LABS: ABG A-A DIFF O2 137.5 mmHg (10-20.0); ABG BASE EXCESS -1.1 mmol/L (-2.0-3.0); ABG HCO3 23.6 mmol/L (22.0-26.0); ABG OXYHEMOGLOBIN 96.5 % (94.0-100.0); ABG PCO2 42 mmHg (35-45); ALLEN TEST, BLOOD GAS Positive; TEMPERATURE, FAHRENHEIT, BG 99.7 FAHREN (96.0-98.6)
[2016-11-03 17:37] LABS: GLUCOSE COMMENT 1 Received Meds; GLUCOSE,POINT OF CARE 142 MG/DL (70-110)
[2016-11-03 17:37] LABS: GLUCOSE,POINT OF CARE 123 MG/DL (70-110)
[2016-11-03 17:37] LABS: GLUCOSE,POINT OF CARE 115 MG/DL (70-110)
[2016-11-03 18:09] LABS: PROTHROMBIN TIME 10.3 SEC (9.4-11.6)
[2016-11-04] VITALS (8 sets, daily range): BP systolic 94–131; BP diastolic 55–83
[2016-11-04] MEDS: MetroNIDAZOLE 500 MG TABLET PO SCH ×3 (00:04→17:33)
[2016-11-04] MEDS: PROPOFOL 1000 MG/ISO-OSM 100 ML IV PRN ×7 (00:20→23:09)
[2016-11-04] MEDS ORDERED: ROCURONIUM BROMIDE 10 MG/ML 5 ML VIAL IVP ONE (00:31)
[2016-11-04] MEDS ORDERED: FentaNYL CITRATE-PF 100 MCG/2 ML VIAL IVP ONE (00:31)
[2016-11-04] MEDS ORDERED: MIDAZOLAM HCL 2 MG/2 ML VIAL IVP ONE (00:31)
[2016-11-04 01:29] LABS: GLUCOSE,POINT OF CARE 94 MG/DL (70-110)
[2016-11-04 05:35] LABS: BASOPHILS % (AUTO) 0.8 % (0.0-2.0); EOSINOPHILS % (AUTO) 4.5 % (1.0-6.0); HEMATOCRIT 34.5 % (36-46); HEMOGLOBIN 10.9 g/dL (12.0-16.0); LYMPHOCYTES # (AUTO) 1.6 K/uL (1.0-4.8); LYMPHOCYTES % (AUTO) 27.7 % (22.0-44.0); MEAN CORPUSCULAR HEMOGLOBIN 27.1 pg (26.0-34.0); MEAN CORPUSCULAR HGB CONC 31.7 G/dL (31.0-37.0); MEAN CORPUSCULAR VOLUME 86 fL (80-100); MONOCYTES # (AUTO) 0.6 K/uL (0.1-1.0); MONOCYTES % (AUTO) 9.9 % (2.0-9.0); NEUTROPHILS # (AUTO) 3.2 K/uL (1.8-7.7); NEUTROPHILS % (AUTO) 57.1 % (40.0-70.0); PLATELET COUNT (AUTO) 157 K/uL (150-450); RED BLOOD CELL COUNT(AUTO) 4.03 MIL/uL (4.00-5.20); RED CELL DISTRIBUTION WIDTH 18.2 % (11.5-14.5); WHITE BLOOD COUNT (AUTO) 5.7 K/uL (4.5-11.0)
[2016-11-04 05:45] LABS: ALBUMIN 2.4 g/dL (3.4-5.0); BILIRUBIN,TOTAL 0.3 mg/dL (0.1-1.0); CALCIUM, TOTAL 8.8 mg/dL (8.8-10.5); MAGNESIUM 1.9 mg/dL (1.80-2.40); POTASSIUM 3.4 mmol/L (3.5-5.1); TOTAL PROTEIN, SERUM 6.3 g/dL (6.4-8.2)
[2016-11-04 07:04] LABS: GLUCOSE,POINT OF CARE 111 MG/DL (70-110)
[2016-11-04 07:45] LABS: RBC MORPHOLOGY COMMENT ABNORMAL RBC MORPH
[2016-11-04] MEDS: LORazepam 1 MG TABLET PO SCH ×3 (09:00→21:26)
[2016-11-04] MEDS: APIXABAN 5 MG TABLET PO SCH ×2 (09:00→21:26)
[2016-11-04] MEDS: MULTIVITAMINS WITH MINERALS, THERAPEUTIC 15 ML UDCUP NG SCH (09:00)
[2016-11-04] MEDS: DOCUSATE SODIUM 100 MG CAPSULE PO SCH ×2 (09:00→21:26)
[2016-11-04] MEDS: LACTOBACILLUS ACIDOPHILUS/BULGARICUS GRANULES PACKET NG SCH ×3 (09:00→21:26)
[2016-11-04] MEDS: PANTOPRAZOLE SODIUM 40 MG/VIAL IVP SCH ×2 (09:25→09:31)
[2016-11-04] MEDS: VANCOMYCIN HCL 750 MG in DEXTROSE 5%-WATER 150 ML IV SCH ×2 (09:30→20:25)
[2016-11-04] MEDS: LIDOCAINE HCL/PF 1% 30 ML VIAL ONE ×2 (10:40→10:46)
[2016-11-04] MEDS ORDERED: SODIUM CHLORIDE 0.9% 1,000 ML IV ONE (10:59)
[2016-11-04] MEDS ORDERED: POTASSIUM CHLORIDE 10% 40 MEQ/30 ML LIQUID UDCUP NG ONE (13:30)
[2016-11-04 14:07] LABS: ABG BASE EXCESS -0.3 mmol/L (-2.0-3.0); ABG OXYHEMOGLOBIN 96.7 % (94.0-100.0); ABG PCO2 44 mmHg (35-45); TEMPERATURE, FAHRENHEIT, BG 97.2 FAHREN (96.0-98.6)
[2016-11-04 14:08] LABS: ALLEN TEST, BLOOD GAS Positive
[2016-11-04 14:58] LABS: GLUCOSE,POINT OF CARE 126 MG/DL (70-110)
[2016-11-04 14:58] LABS: GLUCOSE,POINT OF CARE 106 MG/DL (70-110)
[2016-11-04 15:03] LABS: GLUCOSE,POINT OF CARE 126 MG/DL (70-110)
[2016-11-04 15:42] LABS: GLUCOSE,POINT OF CARE 105 MG/DL (70-110)
[2016-11-04] MEDS ORDERED: MORPHINE SULFATE 2 MG/ML SYRINGE IVP PRN (19:30)
[2016-11-05] VITALS (7 sets, daily range): BP systolic 107–126; BP diastolic 63–82
[2016-11-05] MEDS: MetroNIDAZOLE 500 MG TABLET PO SCH ×3 (00:50→16:00)
[2016-11-05] MEDS: PROPOFOL 1000 MG/ISO-OSM 100 ML IV PRN ×7 (05:04→21:47)
[2016-11-05 06:37] LABS: GLUCOSE,POINT OF CARE 129 MG/DL (70-110)
[2016-11-05 06:37] LABS: GLUCOSE,POINT OF CARE 125 MG/DL (70-110)
[2016-11-05 06:37] LABS: GLUCOSE,POINT OF CARE 119 MG/DL (70-110)
[2016-11-05 07:57] LABS: BASOPHILS % (AUTO) 0.3 % (0.0-2.0); EOSINOPHILS % (AUTO) 4.5 % (1.0-6.0); HEMOGLOBIN 10.9 g/dL (12.0-16.0); LYMPHOCYTES % (AUTO) 11.8 % (22.0-44.0); MEAN CORPUSCULAR HGB CONC 31.9 G/dL (31.0-37.0); MEAN CORPUSCULAR VOLUME 85 fL (80-100); MONOCYTES # (AUTO) 0.6 K/uL (0.1-1.0); MONOCYTES % (AUTO) 6.9 % (2.0-9.0); NEUTROPHILS # (AUTO) 6.5 K/uL (1.8-7.7); NEUTROPHILS % (AUTO) 76.5 % (40.0-70.0); PLATELET COUNT (AUTO) 139 K/uL (150-450); RED BLOOD CELL COUNT(AUTO) 4.02 MIL/uL (4.00-5.20); RED CELL DISTRIBUTION WIDTH 17.9 % (11.5-14.5); WHITE BLOOD COUNT (AUTO) 8.5 K/uL (4.5-11.0)
[2016-11-05] MEDS: POTASSIUM CHL 10 MEQ/WATER 50 ML IV SCH ×2 (08:30→09:30)
[2016-11-05 08:39] LABS: CALCIUM, TOTAL 8.5 mg/dL (8.8-10.5); CREATININE 0.95 mg/dL (0.60-1.30); POTASSIUM 3.7 mmol/L (3.5-5.1)
[2016-11-05] MEDS: VANCOMYCIN HCL 750 MG in DEXTROSE 5%-WATER 150 ML IV SCH ×2 (08:52→21:50)
[2016-11-05] MEDS: PANTOPRAZOLE SODIUM 40 MG/VIAL IVP SCH (08:53)
[2016-11-05] MEDS: LORazepam 1 MG TABLET PO SCH ×3 (08:54→21:49)
[2016-11-05] MEDS: APIXABAN 5 MG TABLET PO SCH ×2 (08:54→21:49)
[2016-11-05] MEDS: MULTIVITAMINS WITH MINERALS, THERAPEUTIC 15 ML UDCUP NG SCH (08:54)
[2016-11-05] MEDS: LACTOBACILLUS ACIDOPHILUS/BULGARICUS GRANULES PACKET NG SCH ×3 (08:54→21:49)
[2016-11-05] MEDS: DOCUSATE SODIUM 100 MG CAPSULE PO SCH ×2 (08:55→21:00)
[2016-11-05] MEDS: INSULIN REGULAR, HUMAN 100 UNITS/ML SQ PRN (12:37)
[2016-11-05] MEDS ORDERED: FUROSEMIDE 40 MG/4 ML VIAL IVP ONE (13:30)
[2016-11-05 18:11] LABS: GLUCOSE,POINT OF CARE 122 MG/DL (70-110)
[2016-11-05 18:57] LABS: GLUCOSE COMMENT 1 Received Meds; GLUCOSE,POINT OF CARE 154 MG/DL (70-110)
[2016-11-06] VITALS (8 sets, daily range): BP systolic 100–143; BP diastolic 56–97
[2016-11-06] MEDS: PROPOFOL 1000 MG/ISO-OSM 100 ML IV PRN ×8 (00:30→21:14)
[2016-11-06] MEDS: MetroNIDAZOLE 500 MG TABLET PO SCH ×3 (00:31→16:00)
[2016-11-06] MEDS ORDERED: SODIUM CHLORIDE 0.9% 250 ML IV ONE (04:57)
[2016-11-06 05:56] LABS: CALCIUM, TOTAL 8.8 mg/dL (8.8-10.5); CREATININE 0.98 mg/dL (0.60-1.30); MAGNESIUM 1.7 mg/dL (1.80-2.40); PHOSPHORUS 3.4 mg/dL (2.5-4.9); POTASSIUM 3.7 mmol/L (3.5-5.1)
[2016-11-06 07:02] LABS: GLUCOSE,POINT OF CARE 136 MG/DL (70-110)
[2016-11-06 07:02] LABS: GLUCOSE,POINT OF CARE 107 MG/DL (70-110)
[2016-11-06] MEDS ORDERED: MAGNESIUM SULFATE 2 GM in DEXTROSE 5%-WATER 50 ML IV ONE (08:30)
[2016-11-06] MEDS: PANTOPRAZOLE SODIUM 40 MG/VIAL IVP SCH (08:40)
[2016-11-06] MEDS: VANCOMYCIN HCL 750 MG in DEXTROSE 5%-WATER 150 ML IV SCH ×2 (08:40→19:56)
[2016-11-06] MEDS: LORazepam 1 MG TABLET PO SCH ×3 (08:41→21:13)
[2016-11-06] MEDS: LACTOBACILLUS ACIDOPHILUS/BULGARICUS GRANULES PACKET NG SCH ×3 (08:41→21:12)
[2016-11-06] MEDS: DOCUSATE SODIUM 100 MG CAPSULE PO SCH ×2 (08:41→21:00)
[2016-11-06] MEDS: APIXABAN 5 MG TABLET PO SCH ×2 (08:41→21:13)
[2016-11-06] MEDS: MULTIVITAMINS WITH MINERALS, THERAPEUTIC 15 ML UDCUP NG SCH (08:41)
[2016-11-06 16:17] LABS: GLUCOSE,POINT OF CARE 133 MG/DL (70-110)
[2016-11-06 19:12] LABS: GLUCOSE,POINT OF CARE 104 MG/DL (70-110)
[2016-11-07] VITALS (8 sets, daily range): BP systolic 112–136; BP diastolic 49–79
[2016-11-07] MEDS: MetroNIDAZOLE 500 MG TABLET PO SCH ×3 (00:18→17:14)
[2016-11-07] MEDS: PROPOFOL 1000 MG/ISO-OSM 100 ML IV PRN ×8 (00:18→23:13)
[2016-11-07 03:02] LABS: GLUCOSE,POINT OF CARE 113 MG/DL (70-110)
[2016-11-07 06:30] LABS: ANION GAP 7 mmol/L (8-16); CALCIUM, TOTAL 8.7 mg/dL (8.8-10.5); CARBON DIOXIDE 28 mmol/L (22-29); CHLORIDE 107 mmol/L (98-107); CREATININE 0.89 mg/dL (0.60-1.30); GLOMERULAR FILTR. RATE CALC > 60 mL/min (>60); PHOSPHORUS 3.5 mg/dL (2.5-4.9); POTASSIUM 3.5 mmol/L (3.5-5.1); SODIUM SERUM 142 mmol/L (136-145); UREA NITROGEN, BLOOD 17 mg/dL (7-18)
[2016-11-07 06:47] LABS: GLUCOSE,POINT OF CARE 110 MG/DL (70-110)
[2016-11-07] MEDS: VANCOMYCIN HCL 750 MG in DEXTROSE 5%-WATER 150 ML IV SCH ×2 (08:50→21:23)
[2016-11-07] MEDS: APIXABAN 5 MG TABLET PO SCH (08:51)
[2016-11-07] MEDS: LACTOBACILLUS ACIDOPHILUS/BULGARICUS GRANULES PACKET NG SCH ×3 (08:51→21:29)
[2016-11-07] MEDS: DOCUSATE SODIUM 100 MG CAPSULE PO SCH ×2 (08:52→21:28)
[2016-11-07] MEDS: MULTIVITAMINS WITH MINERALS, THERAPEUTIC 15 ML UDCUP NG SCH (08:52)
[2016-11-07] MEDS: PANTOPRAZOLE SODIUM 40 MG/VIAL IVP SCH (08:52)
[2016-11-07] MEDS: LORazepam 1 MG TABLET PO SCH ×3 (09:01→21:29)
[2016-11-07] MEDS ORDERED: POTASSIUM CHLORIDE 10% 40 MEQ/30 ML LIQUID UDCUP NG ONE (09:45)
[2016-11-07] MEDS: ACETAMINOPHEN 325 MG TABLET PO PRN (13:55)
[2016-11-07 18:12] LABS: GLUCOSE,POINT OF CARE 142 MG/DL (70-110)
[2016-11-08] VITALS (14 sets, daily range): BP systolic 102–187; BP diastolic 48–134
[2016-11-08] MEDS: MetroNIDAZOLE 500 MG TABLET PO SCH ×3 (00:11→16:52)
[2016-11-08] MEDS: PROPOFOL 1000 MG/ISO-OSM 100 ML IV PRN ×6 (02:10→23:54)
[2016-11-08 03:07] LABS: GLUCOSE,POINT OF CARE 118 MG/DL (70-110)
[2016-11-08 05:17] LABS: GLUCOSE,POINT OF CARE 118 MG/DL (70-110)
[2016-11-08 06:04] LABS: ANION GAP 7 mmol/L (8-16); CALCIUM, TOTAL 8.7 mg/dL (8.8-10.5); CARBON DIOXIDE 27 mmol/L (22-29); CHLORIDE 108 mmol/L (98-107); CREATININE 0.93 mg/dL (0.60-1.30); GLOMERULAR FILTR. RATE CALC > 60 mL/min (>60); POTASSIUM 3.2 mmol/L (3.5-5.1); SODIUM SERUM 142 mmol/L (136-145); UREA NITROGEN, BLOOD 17 mg/dL (7-18)
[2016-11-08 06:36] LABS: GLUCOSE,POINT OF CARE 118 MG/DL (70-110)
[2016-11-08] MEDS: VANCOMYCIN HCL 750 MG in DEXTROSE 5%-WATER 150 ML IV SCH ×2 (07:54→20:39)
[2016-11-08] MEDS: LACTOBACILLUS ACIDOPHILUS/BULGARICUS GRANULES PACKET NG SCH ×3 (08:49→20:39)
[2016-11-08] MEDS: LORazepam 1 MG TABLET PO SCH ×3 (08:49→20:39)
[2016-11-08] MEDS: MULTIVITAMINS WITH MINERALS, THERAPEUTIC 15 ML UDCUP NG SCH (08:49)
[2016-11-08] MEDS: DOCUSATE SODIUM 100 MG CAPSULE PO SCH ×2 (08:50→20:39)
[2016-11-08] MEDS: PANTOPRAZOLE SODIUM 40 MG/VIAL IVP SCH (09:00)
[2016-11-08 10:23] LABS: GLUCOSE,POINT OF CARE 106 MG/DL (70-110)
[2016-11-08 10:23] LABS: GLUCOSE,POINT OF CARE 123 MG/DL (70-110)
[2016-11-08 10:23] LABS: GLUCOSE,POINT OF CARE 109 MG/DL (70-110)
[2016-11-08] MEDS ORDERED: MORPHINE SULFATE 2 MG/ML SYRINGE IVP PRN ×2 (13:45→17:30)
[2016-11-08 18:07] LABS: GLUCOSE,POINT OF CARE 128 MG/DL (70-110)
[2016-11-08] MEDS: LORazepam 2 MG/ML VIAL IVP PRN (22:16)
[2016-11-08] MEDS: HALOPERIDOL LACTATE 5 MG/ML VIAL IVP PRN (23:35)
[2016-11-09] VITALS (9 sets, daily range): BP systolic 113–145; BP diastolic 27–98
[2016-11-09] MEDS ORDERED: PROPOFOL 1% 20 ML VIAL IVP ONE
[2016-11-09] MEDS ORDERED: SODIUM CHLORIDE 0.9% 250 ML IV ONE ×2 (01:23→17:23)
[2016-11-09] MEDS: MetroNIDAZOLE 500 MG TABLET PO SCH ×3 (02:41→13:32)
[2016-11-09 03:12] LABS: GLUCOSE,POINT OF CARE 94 MG/DL (70-110)
[2016-11-09 03:12] LABS: GLUCOSE,POINT OF CARE 121 MG/DL (70-110)
[2016-11-09] MEDS: PROPOFOL 1000 MG/ISO-OSM 100 ML IV PRN (03:54)
[2016-11-09 05:37] LABS: ANION GAP 8 mmol/L (8-16); CALCIUM, TOTAL 8.9 mg/dL (8.8-10.5); CARBON DIOXIDE 26 mmol/L (22-29); CHLORIDE 108 mmol/L (98-107); CREATININE 0.81 mg/dL (0.60-1.30); GLOMERULAR FILTR. RATE CALC > 60 mL/min (>60); POTASSIUM 3.9 mmol/L (3.5-5.1); SODIUM SERUM 142 mmol/L (136-145)
[2016-11-09] MEDS: LORazepam 2 MG/ML VIAL IVP PRN (05:58)
[2016-11-09 06:19] LABS: UREA NITROGEN, BLOOD 16 mg/dL (7-18)
[2016-11-09 07:21] LABS: GLUCOSE,POINT OF CARE 75 MG/DL (70-110)
[2016-11-09 07:46] LABS: INR 0.9 (0.9-1.1); PROTHROMBIN TIME 9.9 SEC (9.4-11.6)
[2016-11-09] MEDS: HALOPERIDOL LACTATE 5 MG/ML VIAL IVP PRN (08:09)
[2016-11-09] MEDS: VANCOMYCIN HCL 750 MG in DEXTROSE 5%-WATER 150 ML IV SCH ×2 (08:11→20:00)
[2016-11-09] MEDS: PANTOPRAZOLE SODIUM 40 MG/VIAL IVP SCH (08:54)
[2016-11-09] MEDS: LACTOBACILLUS ACIDOPHILUS/BULGARICUS GRANULES PACKET NG SCH ×3 (09:00→21:08)
[2016-11-09] MEDS: MULTIVITAMINS WITH MINERALS, THERAPEUTIC 15 ML UDCUP NG SCH ×2 (09:00→13:33)
[2016-11-09] MEDS: LORazepam 1 MG TABLET PO SCH ×4 (09:00→21:08)
[2016-11-09] MEDS: DOCUSATE SODIUM 100 MG CAPSULE PO SCH ×2 (09:00→21:00)
[2016-11-09] MEDS ORDERED: MORPHINE SULFATE 2 MG/ML SYRINGE IVP PRN (10:45)
[2016-11-09] MEDS ORDERED: LORazepam 2 MG/ML VIAL IVP PRN (10:45)
[2016-11-09] MEDS ORDERED: SODIUM CHLORIDE 0.9% 500 ML IV ONE (11:15)
[2016-11-09 14:56] LABS: GLUCOSE,POINT OF CARE 85 MG/DL (70-110)
[2016-11-10 01:31] LABS: GLUCOSE,POINT OF CARE 112 MG/DL (70-110)
[2016-11-10] MEDS: MetroNIDAZOLE 500 MG TABLET PO SCH ×3 (01:59→17:14)
[2016-11-10 04:41] VITALS: BP 151/96
[2016-11-10] MEDS: ACETAMINOPHEN 325 MG TABLET PO PRN ×2 (04:51→10:45)
[2016-11-10 07:22] LABS: ANION GAP 7 mmol/L (8-16); CALCIUM, TOTAL 8.7 mg/dL (8.8-10.5); CARBON DIOXIDE 26 mmol/L (22-29); CHLORIDE 111 mmol/L (98-107); CREATININE 0.75 mg/dL (0.60-1.30); GLOMERULAR FILTR. RATE CALC > 60 mL/min (>60); POTASSIUM 3.2 mmol/L (3.5-5.1); SODIUM SERUM 144 mmol/L (136-145); UREA NITROGEN, BLOOD 14 mg/dL (7-18)
[2016-11-10 07:25] VITALS: BP 146/98
[2016-11-10] MEDS: LORazepam 1 MG TABLET PO SCH ×3 (08:51→21:07)
[2016-11-10] MEDS: PANTOPRAZOLE SODIUM 40 MG/VIAL IVP SCH (08:51)
[2016-11-10] MEDS: VANCOMYCIN HCL 750 MG in DEXTROSE 5%-WATER 150 ML IV SCH ×2 (08:51→21:10)
[2016-11-10] MEDS: DOCUSATE SODIUM 100 MG CAPSULE PO SCH ×2 (09:00→20:56)
[2016-11-10] MEDS ORDERED: POTASSIUM CHLORIDE 10% 40 MEQ/30 ML LIQUID UDCUP NG ONE (11:00)
[2016-11-10 11:14] VITALS: BP 157/110
[2016-11-10 12:07] LABS: GLUCOSE,POINT OF CARE 130 MG/DL (70-110)
[2016-11-10 13:04] VITALS: BP 137/82
[2016-11-10] MEDS: LACTOBACILLUS ACIDOPHILUS/BULGARICUS GRANULES PACKET NG SCH ×3 (13:30→21:07)
[2016-11-10 15:32] VITALS: BP 157/96
[2016-11-10 20:25] VITALS: BP 152/93
[2016-11-10] MEDS ORDERED: SODIUM CHLORIDE 0.9% 250 ML IV ONE (22:49)
[2016-11-11] VITALS (7 sets, daily range): BP systolic 128–159; BP diastolic 80–109
[2016-11-11 07:31] LABS: ANION GAP 9 mmol/L (8-16); CALCIUM, TOTAL 9.1 mg/dL (8.8-10.5); CARBON DIOXIDE 27 mmol/L (22-29); CHLORIDE 110 mmol/L (98-107); CREATININE 0.77 mg/dL (0.60-1.30); GLOMERULAR FILTR. RATE CALC > 60 mL/min (>60); POTASSIUM 3.6 mmol/L (3.5-5.1); SODIUM SERUM 146 mmol/L (136-145); UREA NITROGEN, BLOOD 13 mg/dL (7-18)
[2016-11-11] MEDS: MetroNIDAZOLE 500 MG TABLET PO SCH ×4 (08:00→23:58)
[2016-11-11] MEDS: MULTIVITAMINS WITH MINERALS, THERAPEUTIC 15 ML UDCUP NG SCH (09:00)
[2016-11-11] MEDS: LORazepam 1 MG TABLET PO SCH ×3 (09:00→20:08)
[2016-11-11] MEDS: LACTOBACILLUS ACIDOPHILUS/BULGARICUS GRANULES PACKET NG SCH ×3 (09:00→20:07)
[2016-11-11] MEDS: DOCUSATE SODIUM 100 MG CAPSULE PO SCH ×2 (09:00→20:08)
[2016-11-11] MEDS ORDERED: GLUCAGON,HUMAN RECOMBINANT 1 MG VIAL ONE ×2 (09:17→15:42)
[2016-11-11] MEDS: VANCOMYCIN HCL 750 MG in DEXTROSE 5%-WATER 150 ML IV SCH ×2 (09:21→20:03)
[2016-11-11] MEDS: PANTOPRAZOLE SODIUM 40 MG/VIAL IVP SCH (09:21)
[2016-11-11] MEDS ORDERED: LIDOCAINE HCL/PF 1% 30 ML VIAL ONE (09:36)
[2016-11-11] MEDS ORDERED: DIATRIZOATE MEGLU/SOD 660/100 MG/ML 120 ML BOTTLE ONE (09:46)
[2016-11-11 14:23] LABS: GLUCOSE,POINT OF CARE 125 MG/DL (70-110)
[2016-11-11] MEDS ORDERED: MIDAZOLAM HCL 2 MG/2 ML VIAL ONE (14:54)
[2016-11-11] MEDS ORDERED: FentaNYL CITRATE-PF 100 MCG/2 ML VIAL ONE (14:55)
[2016-11-11] MEDS ORDERED: GLUCAGON,HUMAN RECOMBINANT 1 MG VIAL IVP ONE (15:45)
[2016-11-11] MEDS ORDERED: FentaNYL CITRATE-PF 100 MCG/2 ML VIAL IVP ONE (15:53)
[2016-11-11] MEDS ORDERED: HYDROmorphone 2 MG/ML SYRINGE IVP ONE (17:00)
[2016-11-12] MEDS ORDERED: SODIUM CHLORIDE 0.9% IRRIG BTL 1,000 ML IRRIG ONE (03:58)
[2016-11-12 05:24] VITALS: BP 140/72
[2016-11-12 06:58] LABS: ANION GAP 8 mmol/L (8-16); CALCIUM, TOTAL 9.2 mg/dL (8.8-10.5); CARBON DIOXIDE 29 mmol/L (22-29); CHLORIDE 112 mmol/L (98-107); CREATININE 0.82 mg/dL (0.60-1.30); GLOMERULAR FILTR. RATE CALC > 60 mL/min (>60); POTASSIUM 3.6 mmol/L (3.5-5.1); SODIUM SERUM 149 mmol/L (136-145); UREA NITROGEN, BLOOD 14 mg/dL (7-18)
[2016-11-12 07:19] VITALS: BP 144/93
[2016-11-12] MEDS: MetroNIDAZOLE 500 MG TABLET PO SCH ×2 (08:00→18:00)
[2016-11-12] MEDS ORDERED: DEXTROSE 5%-0.45% SODIUM CHL 1,000 ML IV ONE (08:30)
[2016-11-12] MEDS ORDERED: SODIUM CHLORIDE 0.9% 500 ML IV ONE (08:30)
[2016-11-12] MEDS: MULTIVITAMINS WITH MINERALS, THERAPEUTIC 15 ML UDCUP NG SCH (08:38)
[2016-11-12] MEDS: DOCUSATE SODIUM 100 MG CAPSULE PO SCH ×2 (08:38→21:30)
[2016-11-12] MEDS: APIXABAN 5 MG TABLET PO SCH ×2 (08:38→21:30)
[2016-11-12] MEDS: LORazepam 1 MG TABLET PO SCH ×3 (08:38→21:30)
[2016-11-12] MEDS: LACTOBACILLUS ACIDOPHILUS/BULGARICUS GRANULES PACKET NG SCH ×3 (08:38→21:30)
[2016-11-12] MEDS: PANTOPRAZOLE SODIUM 40 MG/VIAL IVP SCH (08:39)
[2016-11-12] MEDS: VANCOMYCIN HCL 1 GM/D5% WATER 200 ML IV SCH ×2 (08:41→20:26)
[2016-11-12 11:53] VITALS: BP 153/112
[2016-11-12 14:07] LABS: GLUCOSE COMMENT 1 Received Meds; GLUCOSE,POINT OF CARE 152 MG/DL (70-110)
[2016-11-12 14:12] LABS: GLUCOSE,POINT OF CARE 113 MG/DL (70-110)
[2016-11-12 14:22] LABS: GLUCOSE,POINT OF CARE 117 MG/DL (70-110)
[2016-11-12 15:00] VITALS: BP 118/43
[2016-11-12 19:57] VITALS: BP 140/87
[2016-11-12 23:53] VITALS: BP 148/87
[2016-11-13] MEDS: MetroNIDAZOLE 500 MG TABLET PO SCH ×3 (00:04→15:18)
[2016-11-13] MEDS: INSULIN REGULAR, HUMAN 100 UNITS/ML SQ PRN ×3 (00:09→11:34)
[2016-11-13 05:40] VITALS: BP 144/97
[2016-11-13] MEDS: DOCUSATE SODIUM 100 MG CAPSULE PO SCH ×2 (07:24→19:51)
[2016-11-13 07:28] VITALS: BP 146/87
[2016-11-13 07:32] LABS: ANION GAP 7 mmol/L (8-16); CALCIUM, TOTAL 9.2 mg/dL (8.8-10.5); CARBON DIOXIDE 29 mmol/L (22-29); CHLORIDE 111 mmol/L (98-107); CREATININE 0.93 mg/dL (0.60-1.30); GLOMERULAR FILTR. RATE CALC > 60 mL/min (>60); POTASSIUM 3.2 mmol/L (3.5-5.1); SODIUM SERUM 147 mmol/L (136-145); UREA NITROGEN, BLOOD 14 mg/dL (7-18)
[2016-11-13] MEDS: VANCOMYCIN HCL 1 GM/D5% WATER 200 ML IV SCH ×2 (07:52→20:22)
[2016-11-13] MEDS: MULTIVITAMINS WITH MINERALS, THERAPEUTIC 15 ML UDCUP NG SCH (08:03)
[2016-11-13] MEDS: APIXABAN 5 MG TABLET PO SCH ×2 (08:03→20:22)
[2016-11-13] MEDS: LORazepam 1 MG TABLET PO SCH ×3 (08:03→20:22)
[2016-11-13] MEDS: LACTOBACILLUS ACIDOPHILUS/BULGARICUS GRANULES PACKET NG SCH ×3 (08:03→20:22)
[2016-11-13] MEDS ORDERED: SODIUM CHLORIDE 0.9% 250 ML IV ONE (08:04)
[2016-11-13] MEDS: PANTOPRAZOLE SODIUM 40 MG/VIAL IVP SCH (08:06)
[2016-11-13] MEDS ORDERED: POTASSIUM CHLORIDE 10% 40 MEQ/30 ML LIQUID UDCUP GT ONE (10:45)
[2016-11-13 11:18] VITALS: BP 135/91
[2016-11-13 14:45] VITALS: BP 156/98
[2016-11-13 20:27] VITALS: BP 139/86
[2016-11-13 22:17] LABS: GLUCOSE,POINT OF CARE 118 MG/DL (70-110)
[2016-11-13 22:18] LABS: GLUCOSE,POINT OF CARE 130 MG/DL (70-110)
[2016-11-13 22:18] LABS: GLUCOSE,POINT OF CARE 132 MG/DL (70-110)
[2016-11-14 00:02] VITALS: BP 140/80
[2016-11-14] MEDS: MetroNIDAZOLE 500 MG TABLET PO SCH ×3 (00:06→16:13)
[2016-11-14] MEDS: ACETAMINOPHEN 325 MG TABLET PO PRN ×2 (00:06→11:37)
[2016-11-14 04:17] VITALS: BP 140/78
[2016-11-14 06:50] LABS: CREATININE 0.95 mg/dL (0.60-1.30); POTASSIUM 3.3 mmol/L (3.5-5.1)
[2016-11-14 07:00] VITALS: BP 142/87
[2016-11-14 08:17] LABS: GLUCOSE,POINT OF CARE 133 MG/DL (70-110)
[2016-11-14 08:22] LABS: GLUCOSE,POINT OF CARE 113 MG/DL (70-110)
[2016-11-14] MEDS: MULTIVITAMINS WITH MINERALS, THERAPEUTIC 15 ML UDCUP NG SCH (08:33)
[2016-11-14] MEDS: LACTOBACILLUS ACIDOPHILUS/BULGARICUS GRANULES PACKET NG SCH ×2 (08:33→16:13)
[2016-11-14] MEDS: APIXABAN 5 MG TABLET PO SCH (08:34)
[2016-11-14] MEDS: LORazepam 1 MG TABLET PO SCH ×2 (08:34→16:13)
[2016-11-14] MEDS: PANTOPRAZOLE SODIUM 40 MG/VIAL IVP SCH (08:34)
[2016-11-14] MEDS: VANCOMYCIN HCL 1 GM/D5% WATER 200 ML IV SCH (08:40)
[2016-11-14] MEDS: DOCUSATE SODIUM 100 MG CAPSULE PO SCH (09:00)
[2016-11-14] MEDS ORDERED: POTASSIUM CHLORIDE 10% 40 MEQ/30 ML LIQUID UDCUP PEG ONE (09:45)
[2016-11-14 11:31] VITALS: BP 139/97
[2016-11-14] MEDS: INSULIN REGULAR, HUMAN 100 UNITS/ML SQ PRN (12:30)
[2016-11-14] MEDS ORDERED: GLUCAGON,HUMAN RECOMBINANT 1 MG VIAL IVP ONE (15:45)
[2016-11-14 19:07] LABS: GLUCOSE,POINT OF CARE 134 MG/DL (70-110)
[2016-11-15 21:12] LABS: GLUCOSE,POINT OF CARE 122 MG/DL (70-110)
[2016-11-15 21:12] LABS: GLUCOSE,POINT OF CARE 123 MG/DL (70-110)
[2016-12-05] MEDS ORDERED: GLUCAGON,HUMAN RECOMBINANT 1 MG VIAL IVP ONE (10:15)
[2016-12-05] MEDS ORDERED: FentaNYL CITRATE-PF 100 MCG/2 ML VIAL IVP ONE (10:15)
== END 2016-11-14 09:50 | DRG 4 ==
LOC: EDSEX 20:31 → EMS 20:31 → EDSEX 22:52 → ICU 22:52 → 5S 11-09 19:15
PROVIDERS: ADMIT Internal Medicine; ATTEND Internal Medicine
PROC: 0BH17EZ Insertion of Endotracheal Airway into Trachea, Via Natural or Artificial Opening (ICD-10-PCS; 2016-10-23)
PROC: 5A1955Z Respiratory Ventilation, Greater than 96 Consecutive Hours (ICD-10-PCS; 2016-10-23)
PROC: 0B113F4 Bypass Trachea to Cutaneous with Tracheostomy Device, Percutaneous Approach (ICD-10-PCS; 2016-10-23)
PROC: BD12ZZZ Fluoroscopy of Stomach (ICD-10-PCS; 2016-10-23)
PROC: 0DH63UZ Insertion of Feeding Device into Stomach, Percutaneous Approach (ICD-10-PCS; principal; 2016-11-11)
DX: J96.01 Acute respiratory failure with hypoxia (principal); G93.40 Encephalopathy, unspecified; I50.31 Acute diastolic (congestive) heart failure; N17.0 Acute kidney failure with tubular necrosis; E43 Unspecified severe protein-calorie malnutrition; J15.212 Pneumonia due to Methicillin resistant Staphylococcus aureus; Z68.42 Body mass index [BMI] 45.0-49.9, adult; E66.2 Morbid (severe) obesity with alveolar hypoventilation; E87.0 Hyperosmolality and hypernatremia; I13.0 Hypertensive heart and chronic kidney disease with heart failure and stage 1 through stage 4 chronic kidney disease, or unspecified chronic kidney disease; J44.0 Chronic obstructive pulmonary disease with (acute) lower respiratory infection; N39.0 Urinary tract infection, site not specified; E83.42 Hypomagnesemia; R13.10 Dysphagia, unspecified; J96.02 Acute respiratory failure with hypercapnia; I25.10 Atherosclerotic heart disease of native coronary artery without angina pectoris; N18.9 Chronic kidney disease, unspecified; F64.9 Gender identity disorder, unspecified; I50.9 Heart failure, unspecified; J44.9 Chronic obstructive pulmonary disease, unspecified; F17.210 Nicotine dependence, cigarettes, uncomplicated; I48.2 Chronic atrial fibrillation; D64.9 Anemia, unspecified; E11.22 Type 2 diabetes mellitus with diabetic chronic kidney disease; E83.39 Other disorders of phosphorus metabolism; E87.6 Hypokalemia; Z79.4 Long term (current) use of insulin; G47.33 Obstructive sleep apnea (adult) (pediatric); Z91.19 Patient's noncompliance with other medical treatment and regimen; Z93.1 Gastrostomy status; Z79.01 Long term (current) use of anticoagulants; Z79.899 Other long term (current) drug therapy
CPT/HCPCS: 31500; 36245; 49440; 51702; 70450; 74176; 76604; 76770; 82271; 82570; 82805; 82962; 83605; 83615; 83735; 84100; 84132; 84156; 84300; 84443; 84540; 85379; 87040; 87070; 87081; 87086; 87147; 87205; 87324; 87449; 93005; 93306; 94002; 94003; 96365; 96375; 99291; 99292; C9113; J0330; J0696; J1170; J1610; J1630; J1644; J1940; J2060; J2250; J2270; J2704; J3010; J3370; J3475; J3480; J3490; J7030; J7040; J7050; J7060

== ENCOUNTER 2018-09-05 21:58 | Emergency (ER) | payer OTHER ==
[~2018-09-05] VITALS: Ht 167.6 cm; Wt 120.5 kg
[~2018-09-05 21:58] MED LIST changes: +AMIO200T44 PO; +APIX5TAB PO; +ARIP15TA2 PO; -ARIP15TA3 PO; +ATOR40TA28 PO; -ETOMIDATE 2 MG/ML 10 ML VIAL IV ONE; +FURO40 PO; +GLIP5 PO; -IBUP-1547 PO; +IBUP-2077 PO; +INSLAN SQ; +LAMO100 PO; +METF-446 PO; +METF-960 PO; -METF10002 PO; +OMEG300C3 PO; +PIOG30TA10 PO; -PIOG30TA2 PO; -TRAZ-147 PO; +TRAZ-186 PO
[2018-09-05 22:00] VITALS: BP 130/76
== END 2018-09-06 00:10 | disposition left against medical advice (07) ==
LOC: EMS 22:00
DX: R06.02 Shortness of breath (principal); I48.91 Unspecified atrial fibrillation; J44.9 Chronic obstructive pulmonary disease, unspecified; E11.9 Type 2 diabetes mellitus without complications; F17.210 Nicotine dependence, cigarettes, uncomplicated; Z53.21 Procedure and treatment not carried out due to patient leaving prior to being seen by health care provider